=== PATIENT | female | born 2000 | race Caucasian/White ===

== ENCOUNTER 2018-06-19 23:48 | Outpatient (CLI) | payer MEDICAID | END 2018-06-20 01:44 | disposition home or self-care (01) | LOC: OBT 23:48 → L-D 23:50 → OBT 06-20 01:44 | DX: O62.9 Abnormality of forces of labor, unspecified (principal); Z3A.38 38 weeks gestation of pregnancy | CPT/HCPCS: 76818 ==

== ENCOUNTER 2018-07-06 18:02 | Inpatient (IN) | payer MEDICAID ==
[2018-07-06] MEDS ORDERED: IBUPROFEN 600 MG TAB PO (18:30)
[2018-07-06] MEDS ORDERED: LIDOCAINE 1% (MPF) 30 ML INJ INJ (18:30)
[2018-07-06] MEDS ORDERED: OXYTOCIN 30 UNITS/LR 500 ML IV ×2 (18:30)
[2018-07-06] MEDS ORDERED: MISOPROSTOL 200 MCG TAB PR (18:30)
[2018-07-06] MEDS ORDERED: BUTORPHANOL 2 MG INJ IV (18:30)
[2018-07-06] MEDS ORDERED: BUTORPHANOL 1 MG INJ IV (18:30)
[2018-07-06] MEDS ORDERED: CARBOPROST 250 MCG INJ IM (18:30)
[2018-07-06 18:57] LABS: ADD MAN DIFF? NO
[2018-07-06 19:02] LABS: BASOPHILS % 0.2 % (0.0-2.0); EOSINOPHILS % 0.4 % (0.0-7.0); HEMATOCRIT 37.3 % (37.0-47.0); HEMOGLOBIN 12.5 g/dl (12.0-16.0); LYMPHOCYTES # 2.2 10^3/ul (0.8-2.9); LYMPHOCYTES % 20.2 % (18.0-55.0); MEAN CORPUSCULAR HGB CONC 33.5 g/dl (32.0-37.0); MEAN CORPUSCULAR VOLUME 89.7 fl (72.0-104.0); MEAN PLATELET VOLUME 10.2 fl (7.4-10.4); NEUTROPHIL # 7.4 10^3/ul (1.6-7.5); NEUTROPHILS % 69.1 % (30.0-74.0); PLATELET COUNT 226 10^3/UL (140-415); RED BLOOD COUNT 4.16 10^6/ul (4.20-5.40); RED CELL DISTRIBUTION WIDTH 13.1 % (11.5-14.5)
[2018-07-06 19:02] LABS: WHITE BLOOD COUNT 10.6 10^3/ul (4.8-10.8)
[2018-07-06] MEDS: LACTATED RINGER'S 1,000 ML IV ×3 (19:02→22:27)
[2018-07-06 19:22] LABS: INR 0.94; PROTIME 12.7 Sec (11.9-14.9)
[2018-07-06 19:29] LABS: PARTIAL THROMBOPLASTIN TIME 26.6 Sec (23.0-35.0)
[2018-07-06 19:50] LABS: HEPATITIS B SURFACE ANTIGEN NEGATIVE (NEGATIVE)
[2018-07-06] MEDS ORDERED: FENTAnyl 2MCG/ML-ROPIV 0.2% 100 ML (22:27)
[2018-07-06] MEDS ORDERED: NALOXONE (0.4 MG/ML) INJ IV (22:30)
[2018-07-07] MEDS: OXYTOCIN 30 UNITS/LR 500 ML IV ×2 (01:36→14:33)
[2018-07-07] MEDS: FENTAnyl 2MCG/ML-ROPIV 0.2% 100 ML BAG EPI ×2 (05:37→11:33)
[2018-07-07] MEDS: LACTATED RINGER'S 1,000 ML IV (07:20)
[2018-07-07] MEDS: METHYLERGONOVINE 0.2 MG INJ IM (14:13)
[2018-07-07 15:41] LABS: RAPID PLASMA REAGIN NONREACTIVE (NR)
[2018-07-07] MEDS ORDERED: ONDANSETRON 4 MG INJ IV (17:00)
[2018-07-07] MEDS ORDERED: MISOPROSTOL 200 MCG TAB PR (17:00)
[2018-07-07] MEDS ORDERED: CARBOPROST 250 MCG INJ IM (17:00)
[2018-07-07] MEDS ORDERED: OXYTOCIN 30 UNITS/LR 500 ML IV (17:00)
[2018-07-07] MEDS ORDERED: DIPHENHYDRAMINE 50 MG INJ IV (17:00)
[2018-07-07] MEDS ORDERED: DIBUCAINE 1% 30 GM OINT TOP (17:00)
[2018-07-07] MEDS ORDERED: ZOLPIDEM 5 MG TAB PO (17:00)
[2018-07-07] MEDS ORDERED: METHYLERGONOVINE 0.2 MG INJ IM (17:00)
[2018-07-07] MEDS: IBUPROFEN 600 MG TAB PO (18:03)
[2018-07-07] MEDS: LANOLIN HPA 1 PKT TOP (18:03)
[2018-07-07] MEDS: BENZOCAINE 20% 56 ML SPRAY TOP (18:03)
[2018-07-07] MEDS: WITCH HAZEL/GLYCERIN PAD PR (18:03)
[2018-07-07] MEDS: LACTATED RINGER'S 1,000 ML IV* (19:02)
[2018-07-07] MEDS: DEXTROSE 5%-LR 1,000 ML IV (21:52)
[2018-07-08] MEDS: IBUPROFEN 600 MG TAB PO ×4 (00:09→18:00)
[2018-07-08] MEDS: DEXTROSE 5%-LR 1,000 ML IV (05:54)
[2018-07-08] MEDS: LACTATED RINGER'S 1,000 ML IV* (05:54)
[2018-07-08 08:26] LABS: ADD MAN DIFF? NO
[2018-07-08 08:37] LABS: WHITE BLOOD COUNT 18.9 10^3/ul (4.8-10.8)
[2018-07-08 08:37] LABS: ABNORMAL IP MESSAGE 1; BASOPHILS % 0.2 % (0.0-2.0); EOSINOPHILS % 0.2 % (0.0-7.0); HEMATOCRIT 30.7 % (37.0-47.0); HEMOGLOBIN 10.2 g/dl (12.0-16.0); LYMPHOCYTES # 2.2 10^3/ul (0.8-2.9); LYMPHOCYTES % 11.7 % (18.0-55.0); MEAN CORPUSCULAR HEMOGLOBIN 30.1 pg (29.0-33.0); MEAN CORPUSCULAR HGB CONC 33.2 g/dl (32.0-37.0); MEAN CORPUSCULAR VOLUME 90.6 fl (72.0-104.0); MEAN PLATELET VOLUME 10.4 fl (7.4-10.4); MONOCYTE # 2.3 10^3/ul (0.3-0.9); MONOCYTES % 12.1 % (0.0-13.0); NEUTROPHIL # 14.2 10^3/ul (1.6-7.5); NEUTROPHILS % 75.3 % (30.0-74.0); PLATELET COUNT 176 10^3/UL (140-415); RED BLOOD COUNT 3.39 10^6/ul (4.20-5.40); RED CELL DISTRIBUTION WIDTH 13.1 % (11.5-14.5)
[2018-07-08 08:46] LABS: POSITIVE DIFF @See below
[2018-07-08] MEDS: MEASLES,MUMPS,RUBELLA VACCINE INJ SC* (10:17)
[2018-07-08] MEDS: INFLUENZA VIRUS VACCINE 0.5 ML (DISPENSING) IM* (11:34)
[2018-07-08] MEDS: ACETAMINOPHEN 325 MG TAB PO (14:29)
[2018-07-08] MEDS: OXYCODONE/ASPIRIN (4.88/325) TAB PO (21:02)
[2018-07-09] MEDS: MAGNESIUM HYDROXIDE 30ML CUP PO (00:27)
[2018-07-09] MEDS: IBUPROFEN 600 MG TAB PO ×3 (00:27→11:35)
[2018-07-09] MEDS: SENNA/DOCUSATE NA (8.6MG/50MG) TAB PO (08:15)
[2018-07-09] MEDS: DIPHTH/TET/ACEL PERTUSS (ADULT) 0.5 ML VIAL IM* (10:00)
== END 2018-07-09 14:20 | disposition home or self-care (01) | DRG 768 ==
LOC: PP1 07-07 17:54 → L-D 18:02
PROVIDERS: Obstetrics & Gynecology
PROC: 10E0XZZ Delivery of Products of Conception, External Approach (ICD-10-PCS; principal; 2018-07-07)
PROC: 0DQR0ZZ Repair Anal Sphincter, Open Approach (ICD-10-PCS; 2018-07-07)
PROC: 0W8NXZZ Division of Female Perineum, External Approach (ICD-10-PCS; 2018-07-07)
DX: O70.20 Third degree perineal laceration during delivery, unspecified (principal); O90.81 Anemia of the puerperium; D64.9 Anemia, unspecified; Z3A.40 40 weeks gestation of pregnancy; Z37.0 Single live birth
CPT/HCPCS: 62319; 76815; 85025; 85610; 85730; 86592; 86850; 86900; 86901; 87340; 90686; 90715